=== PATIENT | male | born 1965 | race African-American/Black ===

== ENCOUNTER 2016-09-05 23:18 | Emergency (ER) | payer SELFPAY ==
[~2016-09-05] VITALS: Ht 180.3 cm; Wt 115.0 kg
[2016-09-05 23:20] VITALS: BP 142/89; PULSE 77; RESP 18; TEMP 97.7; O2SAT 96
[2016-09-06] MEDS ORDERED: SODIUM CHLOR 0.9% 1000 ML INJ 1,000 ML IV ONE (00:15)
[2016-09-06 00:30] VITALS: BP 141/92; PULSE 72; RESP 15; O2SAT 98
[2016-09-06 00:32] LABS: AUTOMATED NEUTROPHIL # 2.7 TH/MM3 (1.8-7.7); BASOPHIL # 0.1 TH/MM3 (0-0.2); BASOPHIL % 1.1 % (0.0-2.0); EOSINOPHIL # 0.2 TH/MM3 (0-0.4); EOSINOPHIL % 3.4 % (0.0-4.0); HEMATOCRIT 37.2 % (39.0-51.0); HEMO FLAGS DIFF FINAL; LYMPH % 45.2 % (9.0-44.0); LYMPHOCYTE # 2.7 TH/MM3 (1.0-4.8); MEAN CELL VOLUME 83.8 FL (80.0-100.0); MEAN CORPUSCULAR HEMOGLOBIN 29.1 PG (27.0-34.0); MEAN CORPUSCULAR HGB CONC 34.7 % (32.0-36.0); MONO % 6.1 % (0.0-8.0); NEUT % 44.2 % (16.0-70.0); PLATELET COUNT 162 TH/MM3 (150-450); RED BLOOD COUNT 4.44 MIL/MM3 (4.50-5.90); RED CELL DISTRIBUTION WIDTH 13.1 % (11.6-17.2)
--- NOTE | 2016-09-06 00:33 | RADRPT ---
EXAM DATE/TIME: 09/06/2016 00:22 [place] COMPARISON: No previous studies available for comparison. INDICATIONS : Pt having chest pain and elevated blood glucose. MEDICAL HISTORY : Hypertension. Diabetes mellitus type II. Myocardial infarction. TIA SURGICAL HISTORY : None. ENCOUNTER: Initial ACUITY: 1 day PAIN SCORE: 8/10 LOCATION: Bilateral chest FINDINGS: A single view of the chest demonstrates the lungs to be symmetrically aerated without evidence of mas s, infiltrate or effusion. The cardiomediastinal contours are unremarkable. Osseous structures are intact. CONCLUSION: No acute disease. Jose Palacio MD on September 06, 2016 at 0:31 Board Certified Radiologist. This report was verified electronically.
[2016-09-06] MEDS ORDERED: FURO20TA PO (00:46)
[2016-09-06] MEDS ORDERED: LISI40TA PO (00:46)
[2016-09-06] MEDS ORDERED: NOVOLOGP2 SQ (00:46)
[2016-09-06] MEDS ORDERED: LEVEMIR SQ (00:46)
[2016-09-06] MEDS ORDERED: POTA10CA PO (00:47)
[2016-09-06 00:49] LABS: BLOOD, URINE NEG (NEG); GLUCOSE,URINE 1000 mg/dL (NEG); KETONE, URINE NEG (NEG); NITRITE,URINE NEG (NEG); PH, URINE 5.5 (5.0-8.5); URINE COLOR LIGHT-YELLOW (YELLW/STRAW)
[2016-09-06 00:52] LABS: ALKALINE PHOSPHATASE 118 U/L (45-117); ALT (GPT) 22 U/L (12-78); ANION GAP 8 MEQ/L (5-15); AST (GOT) 15 U/L (15-37); BETA-HYDROXYBUTYRATE 0.09 MMOL/L (0.00-0.39); BICARBONATE 29.1 MEQ/L (21.0-32.0); BLOOD UREA NITROGEN 22 MG/DL (7-18); CHLORIDE 95 MEQ/L (98-107); CREATINE KINASE 270 U/L (39-308); GLOMERULAR FILTRATION RATE 44 ML/MIN (>89); POTASSIUM 3.5 MEQ/L (3.5-5.1); SODIUM (NA) 132 MEQ/L (136-145); TOTAL BILIRUBIN ADULT 0.3 MG/DL (0.2-1.0)
[2016-09-06 01:03] LABS: COMMENT (UR) CULT NOT INDICATED; CULTURE IF INDICATED CULT NOT INDICATED
[2016-09-06 01:10] LABS: CKMB 2.4 NG/ML (0.5-3.6)
[2016-09-06] MEDS ORDERED: INSULIN HUMAN REGULAR 1,000 UNITS/10 ML VIAL SQ ONE (01:30)
[2016-09-06] MEDS ORDERED: SODIUM CHLORID 0.9% 500 ML INJ 500 ML IV ONE (01:30)
--- NOTE | 2016-09-06 01:30 | PD ---
HPI Chief Complaint: Diabetic Time Seen by Provider: 00:08 Travel History International Travel<30 days: No Contact w/Intl Traveler<30days: No Traveled to known affect area: No History of Present Illness HPI The patient is a 51 year old male who presents to the [facility] emergency department with a history of difficult to control blood sugar, reportedly over the last week. On further questioning, the patient reports that he has not been taking his NovoLog insulin on a regular basis. He reports that he was told to administer it to her 3 times per day, however on average she has been doing it once per day. The patient is new to the area and has not established with a local primary care physician. He reports that he was last admitted to the hospital related to hyperglycemia a month ago. He did not follow-up with his primary care physician and [facility] after that admission as he reports that his doctors now too far away. The patient reports having urinary frequency. He denies having any dysuria. The patient reports that his blood sugar was 400 prior to arrival, therefore he decided to come in. He reports that he did administer 30 units of NovoLog. The patient denies any recent fevers, cough, congestion, neck pain, chest pain, shortness of breath, abdominal pain, vomiting, diarrhea, or neurologic symptoms. 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 Cerebrovascular Accident: Yes (CVA X2) Diabetes: Yes Patient Takes Glucophage: No Diminished Hearing: No Hypertension: Yes Myocardial Infarction: Yes Sleep Apnea: Yes Social History Alcohol Use: No Tobacco Use: No Substance Use: No Allergies-Medications (Allergen,Severity, Reaction): Coded Allergies: No Known Allergies (Unverified , 09/05/16) Reported Meds & Prescriptions Reported Meds & Active Scripts Active Reported Potassium Chloride ER (Potassium Chloride) 10 Meq Cap 10 Meq PO BID Furosemide 20 Mg Tab 20 Mg PO BID Lisinopril 40 Mg Tab 40 Mg PO DAILY Levemir Inj (Insulin Detemir) 1,000 unit/ 10 ML Vial 10 Units SQ BID Do not mix with any other Insulin. Novolog Inj (Insulin Aspart) 1,000 Unit/10 Ml Vial 1 Units SQ ONCE Review of Systems General / Constitutional: No: Fever Eyes: No: Visual changes HENT: No: Headaches Cardiovascular: No: Chest Pain or Discomfort Respiratory: No: Shortness of Breath Gastrointestinal: No: Nausea, Vomiting, Diarrhea, Abdominal Pain Genitourinary: Positive: Frequency, No: Urgency, Dysuria, Flank Pain Musculoskeletal: No: Pain Skin: No Rash Neurologic: No: Weakness, Focal Abnormalities, Change in Mentation, Slurred Speech, Sensory Disturbance Psychiatric: No: Depression Endocrine: Positive: Polyuria, No: Polydipsia Hematologic/Lymphatic: No: Easy Bruising Physical Exam Narrative General: The patient is a well-developed well-nourished male in no acute distress. Head and Neck exam: Head is normocephalic atraumatic. Eyes: Pupils are equal round and reactive to light. Nose: Midline septum with pink mucous membranes Mouth: Dentition unremarkable. Moist mucus membranes. Posterior oropharynx is not erythematous. No tonsillar hypertrophy. Uvula midline. Airway patent. Neck: No palpable lymphadenopathy. No nuchal rigidity. No thyromegaly. Cardiovascular: Regular rate and rhythm without murmurs, gallops, or rubs. Lungs: Clear to auscultation bilaterally. No wheezes, rhonchi, or rales. Abdomen: Soft, without tenderness to palpation in all 4 quadrants of the abdomen. No guarding, rebound, or rigidity. Normal bowel sounds are audible. No tenderness on palpation of McBurney's point. Extremities: No clubbing, cyanosis, or edema. 2+ pulses in all 4 extremities. No calf tenderness on palpation. Back: No spinous process tenderness to palpation. No costovertebral angle tenderness to palpation. Neurologic Exam: Grossly nonfocal Skin Exam: No rash noted. Intact skin that is warm and dry. Data Data Last Documented VS Vital Signs Date Time Temp Pulse Resp B/P Pulse Ox O2 Delivery O2 Flow Rate FiO2 09/06/16 03:12 71 17 142/95 98 09/06/16 00:30 Room Air 09/05/16 23:20 97.7 Orders Electrocardiogram (09/06/16 00:08) Complete Blood Count With Diff (09/06/16 00:08) Comprehensive Metabolic Panel (09/06/16 00:08) Lipase (09/06/16 00:08) Urinalysis - C+S If Indicated (09/06/16 00:08) Magnesium (Mg) (1/16/17 00:08) Beta Hydroxybutyrate (Acetone) (09/06/16 00:08) Chest, Single Ap (09/06/16 00:08) Iv Access Insert/Monitor (09/06/16 00:08) Ecg Monitoring (09/06/16 00:08) Oximetry (09/06/16 00:08) Sodium Chlor 0.9% 1000 Ml Inj (Ns 1000 M (09/06/16 00:15) B-Type Natriuretic Peptide (09/06/16 00:09) Ckmb (Isoenzyme) Profile (09/06/16 00:08) Troponin I (09/06/16 00:08) CKMB (09/06/16 00:20) CKMB% (09/06/16 00:20) Insulin Human Regular Inj (Novolin R Inj (09/06/16 01:30) Sodium Chlorid 0.9% 500 Ml Inj (Ns 500 M (09/06/16 01:30) Blood Glucose (09/06/16 01:25) Labs Laboratory Tests Test 09/06/16 09/06/16 00:20 00:35 White Blood Count 6.0 TH/MM3 Red Blood Count 4.44 MIL/MM3 Hemoglobin 12.9 GM/DL Hematocrit 37.2 % Mean Corpuscular Volume 83.8 FL Mean Corpuscular Hemoglobin 29.1 PG Mean Corpuscular Hemoglobin 34.7 % Concent Red Cell Distribution Width 13.1 % Platelet Count 162 TH/MM3 Mean Platelet Volume 9.3 FL Neutrophils (%) (Auto) 44.2 % Lymphocytes (%) (Auto) 45.2 % Monocytes (%) (Auto) 6.1 % Eosinophils (%) (Auto) 3.4 % Basophils (%) (Auto) 1.1 % Neutrophils # (Auto) 2.7 TH/MM3 Lymphocytes # (Auto) 2.7 TH/MM3 Monocytes # (Auto) 0.4 TH/MM3 Eosinophils # (Auto) 0.2 TH/MM3 Basophils # (Auto) 0.1 TH/MM3 CBC Comment DIFF FINAL Differential Comment Sodium Level 132 MEQ/L Potassium Level 3.5 MEQ/L Chloride Level 95 MEQ/L Carbon Dioxide Level 29.1 MEQ/L Anion Gap 8 MEQ/L Blood Urea Nitrogen 22 MG/DL Creatinine 1.95 MG/DL Estimat Glomerular Filtration 44 ML/MIN Rate Random Glucose 426 MG/DL Calcium Level 8.8 MG/DL Magnesium Level 2.0 MG/DL Total Bilirubin 0.3 MG/DL Aspartate Amino Transf 15 U/L (AST/SGOT) Alanine Aminotransferase 22 U/L (ALT/SGPT) Alkaline Phosphatase 118 U/L Total Creatine Kinase 270 U/L Creatine Kinase MB 2.4 NG/ML Troponin I LESS THAN 0.02 NG/ML B-Type Natriuretic Peptide 8 PG/ML Total Protein 7.2 GM/DL Albumin 3.3 GM/DL Lipase 174 U/L B-Hydroxybutyrate 0.09 MMOL/L Urine Color LIGHT-YELLOW Urine Turbidity CLEAR Urine pH 5.5 Urine Specific Sparkman 1.022 Urine Protein 30 mg/dL Urine Glucose (UA) 1000 mg/dL Urine Ketones NEG mg/dL Urine Occult Blood NEG Urine Nitrite NEG Urine Bilirubin NEG Urine Urobilinogen LESS THAN 2.0 MG/DL Urine Leukocyte Esterase NEG Urine RBC 2 /hpf Urine WBC 1 /hpf Microscopic Urinalysis Comment CULT NOT INDICATED MDM Medical Decision Making Medical Screen Exam Complete: Yes Emergency Medical Condition: Yes Medical Record Reviewed: Yes Interpretation(s) Last Impressions Chest X-Ray 09/06/16 0008 Signed Impressions: Service Date/Time: Tuesday, September 06, 2016 00:22 - CONCLUSION: No acute disease. Jose Palacio MD Differential Diagnosis DKA, versus hyperglycemia for medication noncompliance, versus infectious process causing hyperglycemia, versus acute coronary syndrome causing hyperglycemia Narrative Course During the course of the patients emergency department visit, the patients history, examination, and differential diagnosis were reviewed with the patient. The patient had IV access obtained and blood work sent for analysis. The patient had an EKG done. The patient was placed on a monitor technician with oximetry and blood pressure monitoring. The patient's EKG shows a sinus rhythm heart rate is 64, no acute ST segment changes are noted., No acute ST segment elevation, no ST segment depression. The patient was provided normal saline 1 L IV fluid bolus. The patient was given regular insulin 12 units subcutaneously times one. The patient was given a repeat normal saline 500 mL bolus times one. The patients laboratory studies were reviewed and remarkable for a CBC that shows a white count of 6, hemoglobin 12.9, platelets 162 with 45.2 lymphocytes, CMP is remarkable for a sodium of 132, chloride 95, BUN 22, creatinine 1.95, glucose 426, alkaline phosphatase 118, CPK and troponin I within normal limits, BNP is 8, lipase 174. Urinalysis showed 30 protein at thousand glucose otherwise unremarkable. Beta hydroxybutyrate is negative at 0.09. Radiology studies were reviewed and remarkable for a chest x-ray that shows no acute abnormality. Once the patient's blood sugar began to improve, the patient will be discharged home to follow-up with patient assistance. I discussed with the patient and the importance of taking his insulin as prescribed. Him and his family expressed understanding. The patient's blood sugar was improving and 10 down to 347. This will again be rechecked at after his second fluid bolus and insulin subcutaneous. Last blood sugar prior to discharge Mr. 191. The patient reportedly felt improved. The patient is resting comfortably and feels better, is alert and in no distress. The patients results and examination findings were discussed with the patient. The repeat examination is unremarkable and benign. The history, exam, diagnostic testing, and current condition do not suggest any significant pathology to warrant further testing, continued ED treatment, admission, or surgical evaluation at this point. The vital signs have been stable. The patient does not have uncontrollable pain, intractable vomiting, or other significant symptoms. The patient's condition is stable and appropriate for discharge. The patient will pursue further outpatient evaluation with a primary care physician or other designated or consulting physician as indicated in the discharge instructions. The patient expressed understanding and was agreeable with this plan. Diagnosis Primary Impression: Hyperglycemia due to type 2 diabetes mellitus Qualified Code: E11.65 - Type 2 diabetes mellitus with hyperglycemia, with long-term current use of insulin Additional Impression: Noncompliance with medication regimen Referrals: Patient Assistance Program 2 days Patient Instructions: Diabetic Hyperglycemia (ED), General Instructions Additional Instructions: Take your medications as previously prescribed and check her blood sugar 3 times a day. Med/Other Pt SpecificInfo: No Change to Meds Disposition: DISCHARGE HOME Condition: Stable Lachelle Malhotra MD Sep 06, 2016 01:30
[2016-09-06 03:12] VITALS: BP 142/95
--- NOTE | 2016-09-06 19:25 | EKG ---
Date Performed: 09/06/2016 Time Performed: 01:14:14 PTAGE: 51 years EKG: Sinus rhythm WITH FIRST DEGREE AV BLOCK SEPTAL MYOCARDIAL INFARCTION ABNORMAL ECG NO PREVIOUS TRACING DOCTOR: Manuel Holloway Interpretating Date/Time 09/06/2016 19:21:09
== END 2016-09-06 03:37 | disposition home or self-care (01) ==
LOC: NEPE 23:18
DX: E11.65 Type 2 diabetes mellitus with hyperglycemia (principal); I25.2 Old myocardial infarction; G47.30 Sleep apnea, unspecified; I10 Essential (primary) hypertension; Z91.14 Patient's other noncompliance with medication regimen; Z79.4 Long term (current) use of insulin; I44.0 Atrioventricular block, first degree
CPT/HCPCS: 71010; 80053; 81001; 82010; 82550; 82552; 83690; 83735; 83880; 84484; 85025; 93005; 96360; 96361; 96372; 99285; J1815; J7030; J7040

== ENCOUNTER 2017-02-17 22:07 | Emergency (ER) | payer SELFPAY ==
[~2017-02-17] VITALS: Ht 180.3 cm; Wt 88.0 kg
[~2017-02-17 22:07] MED LIST: FURO20TA PO; LEVEMIR SQ; LISI40TA PO; NOVOLOGP2 SQ; POTA10CA PO
[2017-02-17 22:14] VITALS: BP 165/92; PULSE 90; RESP 20; TEMP 98.3; O2SAT 99
--- NOTE | 2017-02-17 22:36 | PD ---
HPI Chief Complaint: Complaint Time Seen by Provider: 22:25 Travel History International Travel<30 days: No Contact w/Intl Traveler<30days: No Traveled to known affect area: No History of Present Illness HPI 51-year-old male type 1 diabetes presents for evaluation of penile pain. He reports that he retracted his foreskin 12 hours ago in order to clean his penis. He was unable to replace the foreskin back into its anatomical position afterwards. He has developed some pain and edema to the glans penis and to the foreskin. The pain is moderate, aggravated by palpation, throbbing. This happened once in the past, he reports that the symptoms improved on their own. He has no other complaints. PFSH Past Medical History Cerebrovascular Accident: Yes (CVA X2) Diabetes: Yes Patient Takes Glucophage: No Diminished Hearing: No Hypertension: Yes Medical other: Yes (neuropathy) Respiratory: Yes (previous trach ) Myocardial Infarction: Yes Sleep Apnea: Yes Social History Alcohol Use: No Tobacco Use: No Substance Use: No Allergies-Medications (Allergen,Severity, Reaction): Coded Allergies: No Known Allergies (Unverified , 09/05/16) Reported Meds & Prescriptions Reported Meds & Active Scripts Active Reported Potassium Chloride ER (Potassium Chloride) 10 Meq Cap 10 Meq PO BID Furosemide 20 Mg Tab 20 Mg PO BID Lisinopril 40 Mg Tab 40 Mg PO DAILY Levemir Inj (Insulin Detemir) 1,000 unit/ 10 ML Vial 10 Units SQ BID Do not mix with any other Insulin. Novolog Inj (Insulin Aspart) 1,000 Unit/10 Ml Vial 1 Units SQ ONCE Review of Systems General / Constitutional: No: Fever, Chills Gastrointestinal: No: Nausea, Vomiting, Abdominal Pain Genitourinary: Positive: Other (positive for glans penis pain and swelling, foreskin pain and swelling), No: Dysuria Skin: Positive Other (denies rash) Physical Exam Narrative GENERAL: Well-developed well-nourished male in no acute distress SKIN: Warm and dry. HEAD: Atraumatic. Normocephalic. EYES: Pupils equal and round. No scleral icterus. No injection or drainage. ENT: No nasal bleeding or discharge. Mucous membranes pink and moist. NECK: Trachea midline. No JVD. CARDIOVASCULAR: Regular rate and rhythm. No murmur appreciated. RESPIRATORY: No accessory muscle use. Clear to auscultation. Breath sounds equal bilaterally. GASTROINTESTINAL: Abdomen soft, non-tender, nondistended. Hepatic and splenic margins not palpable. : Normal-appearing scrotum. Descended testicles. The glans penis and foreskin are markedly edematous and tender to palpation. There is no urethral discharge. MUSCULOSKELETAL: No obvious deformities. No clubbing. No cyanosis. No edema. NEUROLOGICAL: Awake and alert. No obvious cranial nerve deficits. Motor grossly within normal limits. Normal speech. PSYCHIATRIC: Appropriate mood and affect; insight and judgment normal. Data Data Last Documented VS Vital Signs Date Time Temp Pulse Resp B/P Pulse Ox O2 Delivery O2 Flow Rate FiO2 02/17/17 22:14 98.3 90 20 165/92 99 Orders Lidocaine Pf 1% Inj (Xylocaine-Mpf 1% In (02/17/17 22:45) Oxycodone-Acetamin 5-325 Mg (Percocet (02/18/17 00:30) MDM Medical Decision Making Medical Screen Exam Complete: Yes Emergency Medical Condition: Yes Medical Record Reviewed: Yes Differential Diagnosis Paraphimosis, phimosis, necrosis, balanitis, balanoposthitis Narrative Course This is a 51-year-old male who resents with glans penis and foreskin pain. He is unable to reduce his foreskin after retracting it to clean it several hours ago. Examination reveals a paraphimosis with a swollen and tender foreskin and glans penis. Unable to reduce it spontaneously at this time. After verbal consent was obtained a penile block was performed. The glans penis and foreskin were wrapped with Coban and then the foreskin was reduced over the swollen penis. The glans penis reduction performed by Dr. Au. Ice packs were applied. Procedures Procedure Narrative Penile block: The penile shaft was prepped with Betadine. 1% lidocaine was used to anesthetize the proximal penis at the 10 and 2:00 positions. Patient tolerated procedure well. Oren Dial Feb 17, 2017 22:36
[2017-02-17] MEDS ORDERED: LIDOCAINE HCL 1% PF 30 ML VIAL INFIL ONE (22:45)
--- NOTE | 2017-02-18 00:29 | PD ---
Data Data Last Documented VS Vital Signs Date Time Temp Pulse Resp B/P Pulse Ox O2 Delivery O2 Flow Rate FiO2 02/17/17 22:14 98.3 90 20 165/92 99 Orders Lidocaine Pf 1% Inj (Xylocaine-Mpf 1% In (02/17/17 22:45) Oxycodone-Acetamin 5-325 Mg (Percocet (02/18/17 00:30) MDM Medical Record Reviewed: Yes Supervised Visit with ISMAEL: Yes Narrative Course I, Dr. Au, have reviewed the advance practice practitioner's documentation and am in agreement, met with the patient face to face, made the diagnosis, and the medical decision making was done by me. *My assessment and Findings: Paraphimosis - patient is a 51-year-old male with history of type 1 diabetes, prescription for evaluation of paraphimosis. Patient reports that he took a shower this morning and has been unable to retract his foreskin over his glans penis since this morning. Patient reports that this happened multiple times in the past but he was able to retract his foreskin without difficultly. I was unable to manually retract foreskin, patient required penile block. After patient had penile block, Coban was wrapped over glans penis and foreskin was reduced. Ice was placed to help decrease swollen glands. Patient was re-evaluated, patient has easily reducible foreskin reduction at this time, I did use a 25 gauge after I cleaned the skin with betadine and pierced the skin 3 times to try to reduce swelling by removing any excess fluid. I was unable to reduce excess fluid. Direct pressure was placed over swollen glans to help reduce swelling Patient with decreased swelling and resolution of paraphimosis. Signs and symptoms of when to return to ER was reviewed with patient. Patient will return to ER immediately should he have return of symptoms. He will follow up with urologist as outpatient Diagnosis Primary Impression: Paraphimosis Referrals: Ciro Henderson MD Patient Instructions: Narcotic given in the ED, General Instructions Additional Instruction: Please call urologist first thing in the morning for earliest follow up Please return to the ER immediately if you are unable to retract your foreskin over your penis Please place ice pack for 10 minutes at a time to your penis to help decrease swelling Return to ER as needed Med/Other Pt SpecificInfo: Prescription(s) given Disposition: 01 DISCHARGE HOME Condition: Stable Yesenia Au DO Feb 18, 2017 00:29
[2017-02-18] MEDS ORDERED: oxyCODONE/ACETAMINOPHEN 5 MG/325 MG TAB PO ONE (00:30)
== END 2017-02-18 02:08 | disposition home or self-care (01) ==
LOC: NEPE 22:07
DX: N47.2 Paraphimosis (principal); E10.9 Type 1 diabetes mellitus without complications; I10 Essential (primary) hypertension; I25.2 Old myocardial infarction; G47.30 Sleep apnea, unspecified; Z86.73 Personal history of transient ischemic attack (TIA), and cerebral infarction without residual deficits; Z79.4 Long term (current) use of insulin; Z79.899 Other long term (current) drug therapy
CPT/HCPCS: 54235

== ENCOUNTER 2017-02-20 15:42 | Emergency (ER) | payer SELFPAY ==
[~2017-02-20] VITALS: Ht 180.3 cm; Wt 106.0 kg
[~2017-02-20 15:42] MED LIST changes: +ONDANSETRON HCL 4 MG/2 ML VIAL IV PUSH ONE; +PROPOFOL 200 MG/20 ML AMP IV ONE
[2017-02-20 15:46] VITALS: BP 137/90; PULSE 88; RESP 20; TEMP 97.8; O2SAT 97
[2017-02-20 16:03] VITALS: BP 164/77; PULSE 80; RESP 16; O2SAT 98
--- NOTE | 2017-02-20 17:03 | PD ---
HPI Chief Complaint: Complaint Time Seen by Provider: 15:53 Travel History International Travel<30 days: No Contact w/Intl Traveler<30days: No Traveled to known affect area: No History of Present Illness HPI This patient presents complaining of penile pain and swelling. He was seen here 2 days ago for paraphimosis. His foreskin was reduced after penile block and he went home. Patient reports that his foreskin is still stuck and he has increased swelling and pain. He is having difficulty urinating now but is able to dribble out urine. He reports that his shaft has become more swollen. Severity is moderate. Duration 2 days. No alleviating factors. Patient is not circumcised [facility] Past Medical History Cardiovascular Problems: Yes Cerebrovascular Accident: Yes Diabetes: Yes (insulin ) Patient Takes Glucophage: No Diminished Hearing: No Hypertension: Yes Neurologic: Yes (stroke) Respiratory: Yes (previous trach , sleep apne) Myocardial Infarction: Yes Sleep Apnea: Yes Tetanus Vaccination: > 5 Years Influenza Vaccination: Yes Social History Alcohol Use: No (pt denies ) Tobacco Use: No (pt denies) Substance Use: No (pt denies ) Allergies-Medications (Allergen,Severity, Reaction): Coded Allergies: No Known Allergies (Unverified , 02/20/17) Reported Meds & Prescriptions Reported Meds & Active Scripts Active Reported Potassium Chloride ER (Potassium Chloride) 10 Meq Cap 10 Meq PO BID Furosemide 20 Mg Tab 20 Mg PO BID Lisinopril 40 Mg Tab 40 Mg PO DAILY Levemir Inj (Insulin Detemir) 1,000 unit/ 10 ML Vial 10 Units SQ BID Do not mix with any other Insulin. Novolog Inj (Insulin Aspart) 1,000 Unit/10 Ml Vial 1 Units SQ DAILY Review of Systems General / Constitutional: No: Fever Eyes: No: Visual changes HENT: No: Headaches Cardiovascular: No: Chest Pain or Discomfort Respiratory: No: Shortness of Breath Gastrointestinal: No: Abdominal Pain Genitourinary: Positive: Hesitancy, Dribbling, No: Dysuria Musculoskeletal: No: Pain Skin: No Rash Neurologic: No: Weakness Psychiatric: No: Depression Endocrine: No: Polydipsia Hematologic/Lymphatic: No: Easy Bruising Physical Exam Narrative GENERAL: Well-nourished, well-developed patient in no apparent distress. SKIN: Focused skin assessment reveals no rash and nodules. Skin is Warm and dry. HEAD: Atraumatic. Normocephalic. EYES: Pupils equal and round. No scleral icterus. No injection or drainage. ENT: No nasal bleeding or discharge. Mucous membranes pink and moist. NECK: Trachea midline. No JVD. CARDIOVASCULAR: Regular rate and rhythm. No murmur appreciated. RESPIRATORY: No accessory muscle use. Clear to auscultation. Breath sounds equal bilaterally. GASTROINTESTINAL: Abdomen soft, non-tender, nondistended. Hepatic and splenic margins not palpable. MUSCULOSKELETAL: No obvious deformities. No clubbing. No cyanosis. No edema. NEUROLOGICAL: Awake and alert. No obvious cranial nerve deficits. Motor grossly within normal limits. Normal speech. PSYCHIATRIC: Appropriate mood and affect; insight and judgment normal. : Patient has significant swelling of the penile shaft. The distal part is worse. There seems to be a tourniquet type effect of foreskin which is now ulcerating into the shaft. The glans is swollen. Data Data Last Documented VS Vital Signs Date Time Temp Pulse Resp B/P Pulse Ox O2 Delivery O2 Flow Rate FiO2 02/20/17 17:23 97.8 78 16 158/82 99 Room Air Orders Iv Access Insert/Monitor (02/20/17 16:47) Complete Blood Count With Diff (02/20/17 16:47) Basic Metabolic Panel (Bmp) (02/20/17 16:47) Prothrombin Time / Inr (Pt) (02/20/17 16:47) Act Partial Throm Time (Ptt) (02/20/17 16:47) Electrocardiogram (02/20/17 ) Arterial Blood Gas (Abg) (02/20/17 ) Sodium Chlor 0.9% 1000 Ml Inj (Ns 1000 M (02/20/17 17:30) Insulin Human Regular Inj (Novolin R Inj (02/20/17 17:30) Cefazolin 2 Gm Premix (Ancef 2 Gm Premix (02/20/17 17:45) Labs Laboratory Tests Test 02/20/17 02/20/17 16:50 17:37 White Blood Count 5.8 TH/MM3 Red Blood Count 4.39 MIL/MM3 Hemoglobin 13.0 GM/DL Hematocrit 37.1 % Mean Corpuscular Volume 84.4 FL Mean Corpuscular Hemoglobin 29.6 PG Mean Corpuscular Hemoglobin 35.1 % Concent Red Cell Distribution Width 12.9 % Platelet Count 156 TH/MM3 Mean Platelet Volume 10.0 FL Neutrophils (%) (Auto) 60.0 % Lymphocytes (%) (Auto) 32.1 % Monocytes (%) (Auto) 5.3 % Eosinophils (%) (Auto) 1.9 % Basophils (%) (Auto) 0.7 % Neutrophils # (Auto) 3.5 TH/MM3 Lymphocytes # (Auto) 1.9 TH/MM3 Monocytes # (Auto) 0.3 TH/MM3 Eosinophils # (Auto) 0.1 TH/MM3 Basophils # (Auto) 0.0 TH/MM3 CBC Comment DIFF FINAL Differential Comment Prothrombin Time 10.9 SEC Prothromb Time International 1.0 RATIO Ratio Activated Partial 23.7 SEC Thromboplast Time Sodium Level 130 MEQ/L Potassium Level 4.3 MEQ/L Chloride Level 95 MEQ/L Carbon Dioxide Level 27.8 MEQ/L Anion Gap 7 MEQ/L Blood Urea Nitrogen 19 MG/DL Creatinine 1.81 MG/DL Estimat Glomerular Filtration 48 ML/MIN Rate Random Glucose 431 MG/DL Calcium Level 8.8 MG/DL Blood Gas Puncture Site RT RADIAL Blood Gas Patient Temperature 98.6 Blood Gas HCO3 26 mmol/L Blood Gas Base Excess 2.4 mmol/L Blood Gas Oxygen Saturation 97 % Arterial Blood pH 7.45 Arterial Blood Partial 39 mmHg Pressure CO2 Arterial Blood Partial 104 mmHG Pressure O2 Arterial Blood Oxygen Content 17.3 Vol % Arterial Blood 1.4 % Carboxyhemoglobin Arterial Blood Methemoglobin 0.6 % Blood Gas Hemoglobin 12.7 G/DL Oxygen Delivery Device ROOM AIR Blood Gas Inspired Oxygen 21 % [facility] [place] Medical Decision Making Medical Screen Exam Complete: Yes Emergency Medical Condition: Yes Medical Record Reviewed: Yes Differential Diagnosis Paraphimosis, shaft edema, cellulitis Narrative Course I have reviewed the patient's electronic medical record. I reviewed his note from 2 days ago including procedure note indicated reduction occurred Review the case in detail with urologist client operations manager Dr. Rehman. It sounds like this patient requires surgical intervention for release and circumcision I've ordered a preop workup IV placed I reviewed his EKG which shows sinus rhythm without ST elevation or ectopy CBC is normal Metabolic profile shows hyperglycemia of 431 with normal bicarbonate Coagulation studies are normal ABG is normal Patient's hyperglycemia without DKA. I gave him a liter normal saline IV and 12 units IV regular insulin Patient has an urgent need for operative reduction of his paraphimosis He is heading to OR now and will likely be discharged after procedure Urologist is driving in to evaluate him for operative fix Diagnosis Primary Impression: Paraphimosis Additional Impression: Hyperglycemia due to type 2 diabetes mellitus Qualified Code: E11.65 - Type 2 diabetes mellitus with hyperglycemia, with long-term current use of insulin Additional Instructions: The patient was advised to follow up with their physician and return if they worsen. Med/Other Pt SpecificInfo: Other Disposition: 01 DISCHARGE HOME Condition: Stable Simon Fitzpatrick MD Feb 20, 2017 17:03
[2017-02-20 17:23] VITALS: BP 158/82; PULSE 78; RESP 16; TEMP 97.8; O2SAT 99
[2017-02-20 17:23] LABS: AUTOMATED NEUTROPHIL # 3.5 TH/MM3 (1.8-7.7); BASOPHIL % 0.7 % (0.0-2.0); EOSINOPHIL # 0.1 TH/MM3 (0-0.4); EOSINOPHIL % 1.9 % (0.0-4.0); HEMATOCRIT 37.1 % (39.0-51.0); HEMO FLAGS DIFF FINAL; LYMPH % 32.1 % (9.0-44.0); LYMPHOCYTE # 1.9 TH/MM3 (1.0-4.8); MEAN CELL VOLUME 84.4 FL (80.0-100.0); MEAN CORPUSCULAR HEMOGLOBIN 29.6 PG (27.0-34.0); MEAN CORPUSCULAR HGB CONC 35.1 % (32.0-36.0); MONO % 5.3 % (0.0-8.0); PLATELET COUNT 156 TH/MM3 (150-450); RED BLOOD COUNT 4.39 MIL/MM3 (4.50-5.90); RED CELL DISTRIBUTION WIDTH 12.9 % (11.6-17.2); WHITE BLOOD COUNT 5.8 TH/MM3 (4.0-11.0)
[2017-02-20 17:29] LABS: APTT (PATIENT) 23.7 SEC (24.3-30.1); PROTHROMBIN TIME - PATIENT 10.9 SEC (9.8-11.6)
[2017-02-20] MEDS ORDERED: SODIUM CHLOR 0.9% 1000 ML INJ 1,000 ML IV ONE (17:30)
[2017-02-20] MEDS ORDERED: INSULIN HUMAN REGULAR 1,000 UNITS/10 ML VIAL IV PUSH ONE (17:30)
[2017-02-20 17:42] LABS: BLOOD GAS BASE EXCESS 2.4 mmol/L (-2-2); BLOOD GAS CARBOXYHEMOGLOBIN 1.4 % (0-4); BLOOD GAS HCO3 26 mmol/L (22-26); BLOOD GAS METHEMOGLOBIN 0.6 % (0-2); BLOOD GAS O2 HGB SATURATION 97 % (90-100); BLOOD GAS OXYGEN CONTENT 17.3 Vol % (12.0-20.0); BLOOD GAS PCO2 39 mmHg (38-42); BLOOD GAS PO2 104 mmHG (61-120); BLOOD GAS TOTAL HGB 12.7 G/DL (12.0-16.0); CRITICAL VALUE NO; DRAW SITE RT RADIAL; FIO2 21 %; NUMBER OF ARTERIAL PUNCTURES 1; OXYGEN DEVICE ROOM AIR; STAT YES; TEMP CORR TO 98.6; ULNAR PULSE PRESENT
[2017-02-20 17:44] LABS: BICARBONATE 27.8 MEQ/L (21.0-32.0); POTASSIUM 4.3 MEQ/L (3.5-5.1)
[2017-02-20] MEDS ORDERED: ceFAZolin 2 GM PREMIX 50 ML ONE (17:45)
[2017-02-20] MEDS ORDERED: BUPIVACAINE HCL PF 0.5% 30 ML VIAL ONE (18:26)
[2017-02-20 18:57] VITALS: TEMP 98.1
[2017-02-20] MEDS ORDERED: fentaNYL CITRATE 250 MCG/5 ML AMP ONE (19:05)
[2017-02-20] MEDS ORDERED: DO NOT ADM ANY ANTICOAGULANT DRUGS PRN (19:15)
[2017-02-20] MEDS ORDERED: CEPH-460 PO (19:31)
[2017-02-20] MEDS ORDERED: TYLETAB34 PO (19:31)
[2017-02-20] MEDS ORDERED: COLA100C (19:31)
[2017-02-20 19:45] VITALS: BP 148/8; PULSE 81; RESP 14; O2SAT 99
--- NOTE | 2017-02-21 08:10 | MB ---
cc: SAEED COLUNGA MD DATE OF CONSULTATION 02/20/2017 REASON FOR CONSULTATION Paraphimosis x 4 days. HISTORY OF PRESENT ILLNESS The patient is a 51-year-old -[place]ese male with a history of diabetes who presents today with a four-day history of paraphimosis. He came to the ER approximately four days ago after retracting his foreskin to clean his penis and it got stuck. He was unable to properly reduce it for almost 12 hours. He came to the ER where the ER physician apparently gave a penile block and reduced it. However, when he went home it remained stuck and swollen and very painful and he came back to the ER for repeat evaluation. He is having some trouble urinating, but is able to drip out urine. He thinks it is related to the extreme pain he is having in his penis. He denies fevers, chills, nausea or vomiting. Denies history of kidney stones or urinary tract infection. Denies family history of genitourinary malignancies. MEDICATIONS He does take aspirin 325 mg daily because he had a heart attack and stroke in the past. He states that he is definitely not circumcised. REVIEW OF SYSTEMS See HPI, otherwise all systems reviewed are otherwise are negative. PAST HISTORY 1. Significant for CVA. 2. NV. 3. Diabetes. 4. Sleep apnea. PAST SURGICAL HISTORY Previous tracheostomy. ALLERGIES No known drug allergies. REPORTED MEDICATIONS 1. Aspirin 325 mg daily. 2. Potassium chloride 10 mg p.o. b.i.d. 3. Furosemide 20 mg p.o. b.i.d. 4. Lisinopril 40 mg p.o. daily. 5. Levemir insulin. 6. NovoLog sliding scale. FAMILY HISTORY Denies urolithiasis or genitourinary malignancies. SOCIAL HISTORY Denies smoking, alcohol or illicit drug use. Is currently . PHYSICAL EXAMINATION VITAL SIGNS: Temperature 97.8, pulse 78, respiration 16, BP 150/83. Sating 99% on room air. GENERAL: He is alert, oriented x 3. In no apparent distress. Pleasant, cooperative male, appears his stated age. HEAD: Normocephalic, atraumatic. EYES: No scleral icterus. Extraocular muscles intact. NECK: Supple. Trachea is midline. No JVD. SKIN: No ulcers or rashes. Mucous membranes pink and moist. LUNGS: Clear to auscultation bilaterally. No wheezes, rales or rhonchi. HEART: Regular rhythm. No murmurs, gallops or rubs. ABDOMEN: Soft, non-tender, non-distended. Positive bowel sounds. There is no CVA tenderness bilaterally. GENITOURINARY: His penis is uncircumcised but diffusely red and swollen with excoriation of the foreskin which is a constricting band stuck around the coronal sulcus. Testes descended bilaterally. Normal size and consistency, without mass. EXTREMITIES: Nontender. No clubbing, cyanosis or edema. PSYCH: Normal affect. NEUROLOGICAL: Cranial nerves II-XII intact. Strength 5/5 in all four extremities. LABS White count 5.8, hemoglobin 13.0, hematocrit 37.1, platelet count 156. Sodium 138, potassium 4.3, chloride 95, bicarb 27.8, BUN 19, creatinine 1.81, glucose 431. ASSESSMENT AND PLAN The patient is a 51-year-old male with history of diabetes who presents with a paraphimosis x 4 days. PLAN Due to the length of the paraphimosis and the extreme pain the patient is in, elected to bring him back to the OR under anesthetic to reduce the paraphimosis. He is currently taking aspirin 325 mg daily due to his recent history of heart attack and stroke. Therefore, will only do surgery if necessary due to the risk of bleeding. I discussed the risks, benefits and alternatives with the patient and he understood all the risks. All questions were answered. Informed consent was obtained. Saeed Colunga MD EMF/CHERRI /6:59 PM /8:00 AM
--- NOTE | 2017-02-21 14:10 | EKG ---
Date Performed: 02/20/2017 Time Performed: 16:56:24 PTAGE: 51 years EKG: Sinus rhythm NONSPECIFIC T-WAVE ABNORMALITY BORDERLINE ECG PREVIOUS TRACING : 09/06/2016 01.14 Now consider anteroseptal myocardial infarction - age indet erminate DOCTOR: Carlos Tamayo Interpretating Date/Time 02/21/2017 14:09:53
--- NOTE | 2017-02-22 17:59 | MP ---
cc: LULA COLUNGA MD DATE OF SURGERY 02/20/17 PREOPERATIVE DIAGNOSIS Paraphimosis x 4 days. POSTOPERATIVE DIAGNOSIS Paraphimosis x 4 days. PROCEDURE PERFORMED 1. Reduction of paraphimosis. 2. Dorsal penile block. SURGEON MD Sherie ANESTHESIA General. COMPLICATIONS None. PREOP ANTIBIOTICS Ancef 1 gram IV. DRAINS None. SPECIMEN None. BLOOD LOSS Less than 5 ml. DISPOSITION To recovery. INDICATIONS The patient is a 51-year-old -[place] male with a history of diabetes who presented to the ER today with a 4 day history of paraphimosis. He initially presented approximately 4 days ago with a similar issue. He was apparently reduced in the ER by the ER physician and was sent home to follow up with Dr. Henderson. However, the patient stated the pain and swelling just got worse over the last couple days and he came back to the ER for further evaluation. The patient takes aspirin 325 milligrams daily due to recent heart attack and stroke. I discussed management options with him including the need for a possible circumcision. Since it has been 4 days of paraphimosis and to be extraordinarily painful it was elected to be done under anesthetic. The risks, benefits, alternatives were explained to the patient including a possible need for circumcision. He elected to proceeded and informed consent was obtained. PROCEDURE IN DETAIL The patient was appropriately identified, brought back to the operating room, was laid supine on the operating room table. Appropriate time-out was performed under direction of anesthesiology. The patient ___ to be reduced under general aesthetic. Preoperative antibiotics in the form of Ancef 1 gram IV was given within one hour of the start of the procedure. The patient was then prepped, draped in normal sterile surgical fashion. The glans of the penis and surrounding foreskin were quite edematous. The constricting band was quite obvious. There was some excoriation of the skin. At this time for approximately 5 minutes I did squeeze the penile edema out of the glans of the penis and I was able to easily reduce the paraphimosis successfully. Due to the fact that he is on aspirin 325 milligrams daily I elected not to proceed with a circumcision due to the risk of bleeding. A dorsal penile block was then performed at the end using 10 cc of 0.5% Marcaine. The patient was extubated and sent to recovery in stable condition. He will be discharged home per PACU protocol. MD ROSALINA Hinson/MANUEL /12:43 PM /5:48 PM
== END 2017-02-20 20:55 | disposition home or self-care (01) ==
LOC: NEPC 15:42
DX: N47.2 Paraphimosis (principal); E11.65 Type 2 diabetes mellitus with hyperglycemia; Z79.4 Long term (current) use of insulin
CPT/HCPCS: 00920; 36600; 54161; 64450; 80048; 82805; 85025; 85610; 85730; 93005; 96374; 99284; J0690; J1815; J2405; J3010; J7030

== ENCOUNTER 2017-12-20 10:17 | Emergency (ER) | payer OTHER ==
[~2017-12-20] VITALS: Ht 180.3 cm; Wt 91.0 kg
[~2017-12-20 10:17] MED LIST changes: +CEPH-460 PO; +COLA100C5; -ONDANSETRON HCL 4 MG/2 ML VIAL IV PUSH ONE; -PROPOFOL 200 MG/20 ML AMP IV ONE; +TYLETAB34 PO
[2017-12-20 10:20] VITALS: BP 176/100; PULSE 94; RESP 19; TEMP 98.3; O2SAT 98
[2017-12-20] MEDS ORDERED: SODIUM CHLOR 0.9% 1000 ML INJ 1,000 ML IV ONE (10:45)
[2017-12-20 10:49] VITALS: BP 159/106; PULSE 86; RESP 24; O2SAT 98
[2017-12-20 11:33] LABS: AUTOMATED NEUTROPHIL # 2.6 TH/MM3 (1.8-7.7); BASOPHIL % 0.3 % (0.0-2.0); EOSINOPHIL # 0.2 TH/MM3 (0-0.4); EOSINOPHIL % 3.8 % (0.0-4.0); HEMATOCRIT 39.3 % (39.0-51.0); HEMOGLOBIN 14.2 GM/DL (13.0-17.0); LYMPH % 39.6 % (9.0-44.0); MEAN CORPUSCULAR HEMOGLOBIN 30.1 PG (27.0-34.0); MEAN PLATELET VOLUME 8.9 FL (7.0-11.0); MONO % 5.2 % (0.0-8.0); MONOCYTE # 0.3 TH/MM3 (0-0.9); NEUT % 51.1 % (16.0-70.0); PLATELET COUNT 185 TH/MM3 (150-450); RED BLOOD COUNT 4.74 MIL/MM3 (4.50-5.90)
[2017-12-20 11:34] LABS: MEAN CORPUSCULAR HGB CONC 36.2 % (32.0-36.0)
[2017-12-20 12:00] VITALS: BP 184/112; PULSE 70; RESP 19; O2SAT 98
[2017-12-20 12:02] LABS: BICARBONATE 27.4 MEQ/L (21.0-32.0); CALCIUM 8.9 MG/DL (8.5-10.1); CREATININE 1.53 MG/DL (0.60-1.30)
[2017-12-20 12:30] VITALS: BP 193/110; PULSE 68; RESP 17; O2SAT 98
[2017-12-20 12:44] VITALS: BP 176/112; PULSE 70; RESP 12; O2SAT 100
[2017-12-20 13:11] LABS: BACTERIA, URINE RARE /hpf; BILIRUBIN, URINE NEG (NEG); BLOOD, URINE NEG (NEG); GLUCOSE,URINE 1000 mg/dL (NEG); KETONE, URINE NEG (NEG); NITRITE,URINE NEG (NEG); PH, URINE 6.5 (5.0-8.5); SQUAMOUS EPITHELIAL CELL URINE 12 /hpf (0-5); URINE COLOR LIGHT-YELLOW (YELLW/STRAW); URINE LEUKOCYTE ESTERASE MOD (NEG)
[2017-12-20] MEDS ORDERED: NOVOLOGP2 SQ (13:53)
[2017-12-20] MEDS ORDERED: LEVEMIR SQ (13:53)
[2017-12-20] MEDS ORDERED: GLUCMIS7 (13:55)
[2017-12-20] MEDS ORDERED: BLOOD GLUCOSE T1 TES (13:55)
--- NOTE | 2017-12-20 13:56 | PD ---
HPI Chief Complaint: Diabetic Time Seen by Provider: 10:27 Travel History International Travel<30 days: No Contact w/Intl Traveler<30days: No Traveled to known affect area: No History of Present Illness HPI 52-year-old man presents to the emergency department when they felt lightheaded dizzy and off for the past couple weeks. Is a history of diabetes and CAD. Has not been on medications in quite some time. He states he has a primary physician but has not seen them yet. No frequent urination. No other specific symptoms. No other complaints. History Past Medical History Narrative Medical CAD Diabetes Social History Alcohol Use: No Tobacco Use: No Allergies-Medications (Allergen,Severity, Reaction): Coded Allergies: No Known Allergies (Unverified Adverse Reaction, Unknown, 12/20/17) Reported Meds & Prescriptions Reported Meds & Active Scripts Active Reported Potassium Chloride ER (Potassium Chloride) 10 Meq Cap 10 Meq PO BID Furosemide 20 Mg Tab 20 Mg PO BID Lisinopril 40 Mg Tab 40 Mg PO DAILY Levemir Inj (Insulin Detemir) 1,000 unit/ 10 ML Vial 10 Units SQ BID Do not mix with any other Insulin. Novolog Inj (Insulin Aspart) 1,000 Unit/10 Ml Vial 1 Units SQ DAILY Review of Systems Except as stated in HPI: all other systems reviewed are Neg Physical Exam Narrative GENERAL: Well-appearing 52-year-old man, no acute distress. SKIN: Focused skin assessment warm/dry. HEAD: Atraumatic. Normocephalic. EYES: Pupils equal and round. No scleral icterus. No injection or drainage. ENT: No nasal bleeding or discharge. Mucous membranes pink and moist. NECK: Trachea midline. No JVD. CARDIOVASCULAR: Regular rate and rhythm. No murmur appreciated. RESPIRATORY: No accessory muscle use. Clear to auscultation. Breath sounds equal bilaterally. GASTROINTESTINAL: Abdomen soft, non-tender, nondistended. Hepatic and splenic margins not palpable. MUSCULOSKELETAL: No obvious deformities. No clubbing. No cyanosis. No edema. NEUROLOGICAL: Awake and alert. No obvious cranial nerve deficits. Motor grossly within normal limits. Normal speech. PSYCHIATRIC: Appropriate mood and affect; insight and judgment normal. Data Data Last Documented VS Vital Signs Date Time Temp Pulse Resp B/P (MAP) Pulse Ox O2 Delivery O2 Flow Rate FiO2 12/20/17 12:44 70 12 176/112 (133) 100 Room Air 12/20/17 10:20 98.3 Orders Orders Complete Blood Count With Diff (12/20/17 10:33) Basic Metabolic Panel (Bmp) (12/20/17 10:33) Urinalysis - C+S If Indicated (12/20/17 10:33) Iv Access Insert/Monitor (12/20/17 10:33) Sodium Chlor 0.9% 1000 Ml Inj (Ns 1000 M (12/20/17 10:45) Labs Laboratory Tests Test 12/20/17 11:05 12/20/17 12:58 White Blood Count 5.0 TH/MM3 Red Blood Count 4.74 MIL/MM3 Hemoglobin 14.2 GM/DL Hematocrit 39.3 % Mean Corpuscular Volume 83.0 FL Mean Corpuscular Hemoglobin 30.1 PG Mean Corpuscular Hemoglobin Concent 36.2 % Red Cell Distribution Width 13.0 % Platelet Count 185 TH/MM3 Mean Platelet Volume 8.9 FL Neutrophils (%) (Auto) 51.1 % Lymphocytes (%) (Auto) 39.6 % Monocytes (%) (Auto) 5.2 % Eosinophils (%) (Auto) 3.8 % Basophils (%) (Auto) 0.3 % Neutrophils # (Auto) 2.6 TH/MM3 Lymphocytes # (Auto) 2.0 TH/MM3 Monocytes # (Auto) 0.3 TH/MM3 Eosinophils # (Auto) 0.2 TH/MM3 Basophils # (Auto) 0.0 TH/MM3 CBC Comment AUTO DIFF Differential Comment AUTO DIFF CONFIRMED Blood Urea Nitrogen 17 MG/DL Creatinine 1.53 MG/DL Random Glucose 403 MG/DL Calcium Level 8.9 MG/DL Sodium Level 133 MEQ/L Potassium Level 3.6 MEQ/L Chloride Level 97 MEQ/L Carbon Dioxide Level 27.4 MEQ/L Anion Gap 9 MEQ/L Estimat Glomerular Filtration Rate 58 ML/MIN Urine Color LIGHT-YELLOW Urine Turbidity HAZY Urine pH 6.5 Urine Specific [place] 1.019 Urine Protein 100 mg/dL Urine Glucose (UA) 1000 mg/dL Urine Ketones NEG mg/dL Urine Occult Blood NEG Urine Nitrite NEG Urine Bilirubin NEG Urine Urobilinogen LESS THAN 2.0 MG/DL Urine Leukocyte Esterase MOD Urine RBC 6 /hpf Urine WBC 4 /hpf Urine Squamous Epithelial Cells 12 /hpf Urine Bacteria RARE /hpf Microscopic Urinalysis Comment CULT NOT INDICATED MDM Medical Decision Making Medical Screen Exam Complete: Yes Emergency Medical Condition: Yes Interpretation(s) LABS: CBC is unremarkable BMP is unremarkable Glucose 403 UA with some glucose Differential Diagnosis Hyperglycemia, weakness, dehydration, other Narrative Course Medical decision making 52-year-old man with hyperglycemia due to type 2 diabetes. Some renal insufficiency. Will renew his insulin prescriptions. He is used before. Patient states he has a primary physician. Recommend outpatient follow-up. Diagnosis Primary Impression: Hyperglycemia due to type 2 diabetes mellitus Patient Instructions: General Instructions Additional Instructions: Take medications as prescribed. Follow with her primary doctor this week. Return to the emergency department for any new or worsening symptoms. Med/Other Pt SpecificInfo: Prescription(s) given Scripts Blood-Glucose Meter (Blood Glucose Meter) 1 Each Each EA, #1 Prov: Dominic Cárdenas MD 12/20/17 Blood Glucose Test Strips (Blood Glucose Test Strips) Strips Strip EA .XX DIRECTED for Blood Sugar Management, #1 0 Refills Prov: Dominic Cárdenas MD 12/20/17 Insulin Detemir Inj (Levemir Inj) 1,000 unit/ 10 ML Vial 10 UNITS SQ BID for Blood Sugar Management for 30 Days, VIAL 0 Refills Do not mix with any other Insulin. Prov: Dominic Cárdenas MD 12/20/17 Insulin Aspart Inj (Novolog Inj) 1,000 Unit/10 Ml Vial 1 UNITS SQ DAILY for Blood Sugar Management, #0 ML 0 Refills Prov: Dominic Cárdenas MD 12/20/17 Disposition: 01 DISCHARGE HOME Condition: Stable Dominic Cárdenas MD December 20, 2017 13:56
[2017-12-20] MEDS ORDERED: INSULIN ASPART 1,000 UNITS/10 ML VIAL SQ ONE (14:00)
== END 2017-12-20 15:00 | disposition home or self-care (01) ==
LOC: NEPE 10:17
DX: E11.65 Type 2 diabetes mellitus with hyperglycemia (principal); Z79.4 Long term (current) use of insulin
CPT/HCPCS: 80048; 81001; 85025; 96360; 96372; 99284; J1815; J7030

== ENCOUNTER 2017-12-26 15:04 | Emergency (ER) | payer OTHER ==
[~2017-12-26 15:04] MED LIST changes: +BLOOD GLUCOSE T1 TES; -CEPH-460 PO; -COLA100C5; +GLUCMIS7; -TYLETAB34 PO
[2017-12-26 15:14] VITALS: BP 182/100; PULSE 88; RESP 20; TEMP 99.3; O2SAT 99
[2017-12-26] MEDS ORDERED: SODIUM CHLOR 0.9% 1000 ML INJ 1,000 ML IV ONE ×2 (15:30→16:45)
[2017-12-26] MEDS ORDERED: LIDOCAINE HCL 1% 50 ML VIAL INFIL ONE (15:30)
[2017-12-26 15:51] LABS: AUTOMATED NEUTROPHIL # 8.6 TH/MM3 (1.8-7.7); BASOPHIL % 0.3 % (0.0-2.0); EOSINOPHIL # 0.1 TH/MM3 (0-0.4); EOSINOPHIL % 1.1 % (0.0-4.0); HEMATOCRIT 39.7 % (39.0-51.0); HEMOGLOBIN 14.2 GM/DL (13.0-17.0); LYMPH % 14.5 % (9.0-44.0); LYMPHOCYTE # 1.6 TH/MM3 (1.0-4.8); MEAN CELL VOLUME 83.8 FL (80.0-100.0); MEAN CORPUSCULAR HGB CONC 35.8 % (32.0-36.0); MEAN PLATELET VOLUME 9.3 FL (7.0-11.0); MONO % 5.6 % (0.0-8.0); MONOCYTE # 0.6 TH/MM3 (0-0.9); NEUT % 78.5 % (16.0-70.0); PLATELET COUNT 167 TH/MM3 (150-450); RED BLOOD COUNT 4.74 MIL/MM3 (4.50-5.90); WHITE BLOOD COUNT 10.9 TH/MM3 (4.0-11.0)
[2017-12-26 16:21] LABS: ALBUMIN 2.6 GM/DL (3.4-5.0); ALKALINE PHOSPHATASE 111 U/L (45-117); ALT (GPT) 14 U/L (12-78); AST (GOT) 17 U/L (15-37); BICARBONATE 29.8 MEQ/L (21.0-32.0); BLOOD UREA NITROGEN 14 MG/DL (7-18); CALCIUM 8.9 MG/DL (8.5-10.1); CHLORIDE 90 MEQ/L (98-107); CREATININE 1.75 MG/DL (0.60-1.30); GLOMERULAR FILTRATION RATE 50 ML/MIN (>89); SODIUM (NA) 128 MEQ/L (136-145); TOTAL BILIRUBIN ADULT 0.7 MG/DL (0.2-1.0); TOTAL PROTEIN 7.5 GM/DL (6.4-8.2)
[2017-12-26 16:29] LABS: GLUCOSE,RANDOM 454 MG/DL (74-106)
--- NOTE | 2017-12-26 16:34 | PD ---
HPI Chief Complaint: Diabetic Time Seen by Provider: 15:15 Travel History International Travel<30 days: No Contact w/Intl Traveler<30days: No Traveled to known affect area: No History of Present Illness HPI This is a 52-year-old male who presents to the emergency department with pain on his buttock area, constant, moderate severity it has been going on for 1 week and worsening. He denies any fevers or chills. He does have a history of diabetes and he says that despite being in the emergency department 1 week ago and receiving prescriptions for insulin he was unable to fill it because he did not have a ride to get to the drugstore. PFSH Past Medical History Cardiovascular Problems: Yes Cerebrovascular Accident: Yes Diabetes: Yes Patient Takes Glucophage: No Diminished Hearing: No Hypertension: Yes Neurologic: Yes (stroke) Respiratory: Yes (previous trach ) Myocardial Infarction: Yes Sleep Apnea: Yes Past Surgical History Surgical History: No Previous Surgery Other Surgery: Yes (TRACHED/FEEDING TUBE PLACED AND REMOVED-?2005) Social History Alcohol Use: No Tobacco Use: No Substance Use: No Allergies-Medications (Allergen,Severity, Reaction): Coded Allergies: No Known Allergies (Unverified Adverse Reaction, Unknown, 12/20/17) Reported Meds & Prescriptions Reported Meds & Active Scripts Active Blood Glucose Meter (Blood-Glucose Meter) 1 Each Each Ea Blood Glucose Test Strips Strips Strip Ea .XX DIRECTED Levemir Inj (Insulin Detemir) 1,000 unit/ 10 ML Vial 10 Units SQ BID 30 Days Do not mix with any other Insulin. Novolog Inj (Insulin Aspart) 1,000 Unit/10 Ml Vial 1 Units SQ DAILY Reported Potassium Chloride ER (Potassium Chloride) 10 Meq Cap 10 Meq PO BID Furosemide 20 Mg Tab 20 Mg PO BID Lisinopril 40 Mg Tab 40 Mg PO DAILY Review of Systems Except as stated in HPI: all other systems reviewed are Neg Physical Exam Narrative GENERAL:Well appearing, no acute distress SKIN: 4 cm area of induration along the left buttock crease with no perirectal and perianal involvement HEAD: Atraumatic. Normocephalic. EYES: Pupils equal and round. No injection or drainage. ENT: Moist mucous membranes NECK: Trachea midline. CARDIOVASCULAR: Regular rate and rhythm. No murmur appreciated. RESPIRATORY: Clear to auscultation. Breath sounds equal bilaterally. GASTROINTESTINAL: Abdomen soft, non-tender, nondistended. MUSCULOSKELETAL: No obvious deformities. NEUROLOGICAL: Awake and alert. No obvious cranial nerve deficits. PSYCHIATRIC: Appropriate mood and affect; insight and judgment normal. Data Data Last Documented VS Vital Signs Date Time Temp Pulse Resp B/P (MAP) Pulse Ox O2 Delivery O2 Flow Rate FiO2 12/26/17 15:19 88 18 99 Room Air 12/26/17 15:14 99.3 182/100 (127) Orders Orders Complete Blood Count With Diff (12/26/17 15:21) Comprehensive Metabolic Panel (12/26/17 15:21) ^ Insert Iv (12/26/17 15:21) Sodium Chlor 0.9% 1000 Ml Inj (Ns 1000 M (12/26/17 15:30) Lidocaine 1% Inj (50 Ml) (Xylocaine 1% I (12/26/17 15:30) Insulin Human Regular Inj (Novolin R Inj (12/26/17 16:45) Sodium Chlor 0.9% 1000 Ml Inj (Ns 1000 M (12/26/17 16:45) Labs Laboratory Tests Test 12/26/17 15:38 White Blood Count 10.9 TH/MM3 Red Blood Count 4.74 MIL/MM3 Hemoglobin 14.2 GM/DL Hematocrit 39.7 % Mean Corpuscular Volume 83.8 FL Mean Corpuscular Hemoglobin 30.0 PG Mean Corpuscular Hemoglobin Concent 35.8 % Red Cell Distribution Width 13.0 % Platelet Count 167 TH/MM3 Mean Platelet Volume 9.3 FL Neutrophils (%) (Auto) 78.5 % Lymphocytes (%) (Auto) 14.5 % Monocytes (%) (Auto) 5.6 % Eosinophils (%) (Auto) 1.1 % Basophils (%) (Auto) 0.3 % Neutrophils # (Auto) 8.6 TH/MM3 Lymphocytes # (Auto) 1.6 TH/MM3 Monocytes # (Auto) 0.6 TH/MM3 Eosinophils # (Auto) 0.1 TH/MM3 Basophils # (Auto) 0.0 TH/MM3 CBC Comment DIFF FINAL Differential Comment Blood Urea Nitrogen 14 MG/DL Creatinine 1.75 MG/DL Random Glucose 454 MG/DL Total Protein 7.5 GM/DL Albumin 2.6 GM/DL Calcium Level 8.9 MG/DL Alkaline Phosphatase 111 U/L Aspartate Amino Transf (AST/SGOT) 17 U/L Alanine Aminotransferase (ALT/SGPT) 14 U/L Total Bilirubin 0.7 MG/DL Sodium Level 128 MEQ/L Potassium Level 3.0 MEQ/L Chloride Level 90 MEQ/L Carbon Dioxide Level 29.8 MEQ/L Anion Gap 8 MEQ/L Estimat Glomerular Filtration Rate 50 ML/MIN MDM Medical Decision Making Medical Screen Exam Complete: Yes Emergency Medical Condition: Yes Interpretation(s) temperature 99.3, hypertension no leukocytosis mild hyponatremia, hypokalemia renal insufficiency hyperglycemia Differential Diagnosis Abscess, perirectal abscess, perianal abscess, hyperglycemia, electrolyte abnormality Narrative Course This is a 52-year-old male who presents to the emergency department with swelling and pain in his buttock area. He does have an area of induration along the buttock crease which was incised. I think the abscess is too early for drainage. I advised him to continue warm compresses and he will be prescribed antibiotics. He was given IV fluids and IV insulin. He failed to pear picker his insulin prescriptions. I encouraged him to do so. Otherwise I think patient can be discharged home in a see any reason the patient warrants admission. Diagnosis Primary Impression: Hyperglycemia due to type 2 diabetes mellitus Qualified Codes: E11.65 - Type 2 diabetes mellitus with hyperglycemia; Z79.4 - long term care pharmacist (current) use of insulin Additional Impression: Abscess Patient Instructions: General Instructions Additional Instructions: If you develop fever, increasing redness, warmth, or spreading of your infection , or severe pain return to the emergency department immediately as you may require antibiotics through your IV. Complete your course of antibiotics as prescribed. Med/Other Pt SpecificInfo: Prescription(s) given Scripts Sulfamethoxazole-Trimethoprim (Bactrim DS) 800-160 Mg Tab 1 TAB PO BID for Infection, #20 TAB 0 Refills Prov: Francine Fisher MD 12/26/17 Disposition: 01 DISCHARGE HOME Condition: Stable Francine Fisher MD December 26, 2017 16:34
[2017-12-26] MEDS ORDERED: INSULIN HUMAN REGULAR 1,000 UNITS/10 ML VIAL IV PUSH ONE (16:45)
[2017-12-26] MEDS ORDERED: BACT800T5 PO (17:41)
[2017-12-26] MEDS ORDERED: POTASSIUM CHLORIDE 25 MEQ EFFERVESCENT TAB PO ONE (17:45)
--- NOTE | 2017-12-26 17:47 | PD ---
Physical Exam Date Seen by Provider: December 26, 2017 Time Seen by Provider: 17:46 Data Data Last Documented VS Vital Signs Date Time Temp Pulse Resp B/P (MAP) Pulse Ox O2 Delivery O2 Flow Rate FiO2 12/26/17 15:19 88 18 99 Room Air 12/26/17 15:14 99.3 182/100 (127) Orders Orders Complete Blood Count With Diff (12/26/17 15:21) Comprehensive Metabolic Panel (12/26/17 15:21) ^ Insert Iv (12/26/17 15:21) Sodium Chlor 0.9% 1000 Ml Inj (Ns 1000 M (12/26/17 15:30) Lidocaine 1% Inj (50 Ml) (Xylocaine 1% I (12/26/17 15:30) Insulin Human Regular Inj (Novolin R Inj (12/26/17 16:45) Sodium Chlor 0.9% 1000 Ml Inj (Ns 1000 M (12/26/17 16:45) Potassium Chloride Eff (K-Lyte Cl Eff) (12/26/17 17:45) Labs Laboratory Tests Test 12/26/17 15:38 White Blood Count 10.9 TH/MM3 Red Blood Count 4.74 MIL/MM3 Hemoglobin 14.2 GM/DL Hematocrit 39.7 % Mean Corpuscular Volume 83.8 FL Mean Corpuscular Hemoglobin 30.0 PG Mean Corpuscular Hemoglobin Concent 35.8 % Red Cell Distribution Width 13.0 % Platelet Count 167 TH/MM3 Mean Platelet Volume 9.3 FL Neutrophils (%) (Auto) 78.5 % Lymphocytes (%) (Auto) 14.5 % Monocytes (%) (Auto) 5.6 % Eosinophils (%) (Auto) 1.1 % Basophils (%) (Auto) 0.3 % Neutrophils # (Auto) 8.6 TH/MM3 Lymphocytes # (Auto) 1.6 TH/MM3 Monocytes # (Auto) 0.6 TH/MM3 Eosinophils # (Auto) 0.1 TH/MM3 Basophils # (Auto) 0.0 TH/MM3 CBC Comment DIFF FINAL Differential Comment Blood Urea Nitrogen 14 MG/DL Creatinine 1.75 MG/DL Random Glucose 454 MG/DL Total Protein 7.5 GM/DL Albumin 2.6 GM/DL Calcium Level 8.9 MG/DL Alkaline Phosphatase 111 U/L Aspartate Amino Transf (AST/SGOT) 17 U/L Alanine Aminotransferase (ALT/SGPT) 14 U/L Total Bilirubin 0.7 MG/DL Sodium Level 128 MEQ/L Potassium Level 3.0 MEQ/L Chloride Level 90 MEQ/L Carbon Dioxide Level 29.8 MEQ/L Anion Gap 8 MEQ/L Estimat Glomerular Filtration Rate 50 ML/MIN [facility] Medical Record Reviewed: Yes Supervised Visit with ISMAEL: Yes Narrative Course I was asked by Dr. Fisher to perform an incision and drainage on this patient. Please see her note for further details. Procedures Procedure Narrative INCISION AND DRAINAGE OF ABSCESS: The area was prepped and was sterilely draped. A subcutaneous wheal of 1% lidocaine with a total number 5 mL was used to anesthetize the area properly. A number 11 scalpel was used to make a 1 cm incision across the area of the abscess. The abscess was drained, complex loculations were broken down, and irrigated with normal saline. Sterile dressing applied. Diagnosis Primary Impression: Hyperglycemia due to type 2 diabetes mellitus Qualified Codes: E11.65 - Type 2 diabetes mellitus with hyperglycemia; Z79.4 - [facility] (current) use of insulin Additional Impression: Abscess Patient Instructions: General Instructions Additional Instruction: If you develop fever, increasing redness, warmth, or spreading of your infection , or severe pain return to the emergency department immediately as you may require antibiotics through your IV. Complete your course of antibiotics as prescribed. Scripts Sulfamethoxazole-Trimethoprim (Bactrim DS) 800-160 Mg Tab 1 TAB PO BID for Infection, #20 TAB 0 Refills Prov: Francine Fisher MD 12/26/17 Disposition: 01 DISCHARGE HOME Condition: Stable Charley Parker December 26, 2017 17:47
== END 2017-12-26 20:27 | disposition home or self-care (01) ==
LOC: NEPE 15:04
DX: L02.31 Cutaneous abscess of buttock (principal); E11.65 Type 2 diabetes mellitus with hyperglycemia; E87.1 Hypo-osmolality and hyponatremia; E87.6 Hypokalemia; I10 Essential (primary) hypertension; I25.2 Old myocardial infarction; Z79.4 Long term (current) use of insulin
CPT/HCPCS: 10060; 80053; 85025; 96361; 96374; 99284; J1815; J7030